=== PATIENT | male | born 1950 | race Caucasian/White ===

== ENCOUNTER → 2024-07-19 | Outpatient (CLI) | payer MEDICARE, SELFPAY ==
[2024-07-19 13:26] LABS: Basophils # (Auto) 0.1 Thou/mm3 (0.0-0.2); Basophils % (Auto) 1 % (0-2.5); Eosinophils # (Auto) 0.2 Thou/mm3 (0.0-0.5); Eosinophils % (Auto) 4 % (0-10); Hematocrit 30.9 % (41.0-53.0); Hemoglobin 9.9 g/dL (13.5-16.0); Immature Granulocytes % (Auto) 0 % (0-0); Immature Granulocytes Auto 0.02 Thou/mm3 (0.00-0.00); Lymphocytes # (Auto) 0.8 Thou/mm3 (1.0-4.8); Lymphocytes % (Auto) 14 % (10-50); Mean Corpuscular Volume 94 fL (80-100); Monocytes # (Auto) 0.7 Thou/mm3 (0.0-0.8); Monocytes % (Auto) 12 % (0-12); Neutrophils # (Auto) 4.1 Thou/mm3 (1.8-7.7); Neutrophils % (Auto) 69 % (37-80); Nucleated Red Blood Cell % 0 /100 WBC (0); Platelet Count 234 Thou/mm3 (140-440); RDW Standard Deviation 53.1 fL (35.1-43.9); White Blood Count 5.9 Thou/mm3 (3.8-10.6)
[2024-07-19 13:41] LABS: Alanine Aminotransferase 28 U/L (10-49); Albumin, Serum 3.7 gm/dL (3.4-4.8); Albumin/Globulin Ratio 1.3 (1.2-2.2); Alkaline Phosphatase 94 U/L (46-116); Anion Gap 6 (7-16); Aspartate Amino Transferase 25 U/L (0-34); BUN/Creatinine Ratio 12 Ratio (12-20); Bilirubin,Total 0.4 mg/dL (0.3-1.2); Blood Urea Nitrogen 34 mg/dL (9-23); Calcium 8.6 mg/dL (8.3-10.6); Calcium (Corrected) 8.8 mg/dL (8.5-10.1); Carbon Dioxide 25.2 mMol/L (20.0-31.0); Chloride 108 mMol/L (98-107); Creatinine (Component) 2.8 mg/dL (0.6-1.3); Globulin 2.9 gm/dL (2.3-3.5); Glucose 81 mg/dL (74-106); Magnesium 2.1 mg/dL (1.6-2.6); Osmolality,Calculated 284 (275-295); Phosphorous 3.4 mg/dL (2.4-5.1); Potassium 4.2 mMol/L (3.4-5.1); Sodium 139 mMol/L (136-145); Total Protein 6.6 gm/dL (5.7-8.2); Triglycerides 89 mg/dL (30-150); eGFR 23 See Note
== END | disposition home or self-care (01) ==
LOC: SLDO 12:40
PROVIDERS: Referring Provider Specialist; Visit Provider Specialist
DX: K90.9 Intestinal malabsorption, unspecified (principal); C20 Malignant neoplasm of rectum; C15.5 Malignant neoplasm of lower third of esophagus
CPT/HCPCS: 36415; 80053; 83735; 84100; 84478; 85025

== ENCOUNTER → 2024-08-23 | Outpatient (CLI) | payer MEDICARE, SELFPAY ==
[2024-08-23 13:21] LABS: Basophils % (Auto) 1 % (0-2.5); Eosinophils # (Auto) 0.1 Thou/mm3 (0.0-0.5); Eosinophils % (Auto) 2 % (0-10); Hematocrit 31.3 % (41.0-53.0); Hemoglobin 10.2 g/dL (13.5-16.0); Immature Granulocytes % (Auto) 0 % (0-0); Immature Granulocytes Auto 0.01 Thou/mm3 (0.00-0.00); Lymphocytes # (Auto) 0.8 Thou/mm3 (1.0-4.8); Lymphocytes % (Auto) 12 % (10-50); Mean Corpuscular HGB Conc 32.6 g/dl (31.0-37.0); Mean Corpuscular Hemoglobin 30.4 pg (25.0-35.0); Mean Corpuscular Volume 93 fL (80-100); Monocytes # (Auto) 0.6 Thou/mm3 (0.0-0.8); Monocytes % (Auto) 10 % (0-12); Neutrophils # (Auto) 4.7 Thou/mm3 (1.8-7.7); Neutrophils % (Auto) 75 % (37-80); Nucleated Red Blood Cell % 0 /100 WBC (0); Platelet Count 290 Thou/mm3 (140-440); RDW Standard Deviation 53.8 fL (35.1-43.9); Red Blood Count 3.35 Miln/mm3 (4.50-5.90); White Blood Count 6.2 Thou/mm3 (3.8-10.6)
[2024-08-23 13:40] LABS: Alanine Aminotransferase 24 U/L (10-49); Albumin, Serum 4.1 gm/dL (3.4-4.8); Albumin/Globulin Ratio 1.4 (1.2-2.2); Alkaline Phosphatase 87 U/L (46-116); Anion Gap 10 (7-16); Aspartate Amino Transferase 20 U/L (0-34); BUN/Creatinine Ratio 13 Ratio (12-20); Bilirubin,Total 0.3 mg/dL (0.3-1.2); Blood Urea Nitrogen 42 mg/dL (9-23); Carbon Dioxide 20.4 mMol/L (20.0-31.0); Chloride 108 mMol/L (98-107); Creatinine (Component) 3.2 mg/dL (0.6-1.3); Glucose 99 mg/dL (74-106); Magnesium 2.2 mg/dL (1.6-2.6); Osmolality,Calculated 286 (275-295); Phosphorous 4.3 mg/dL (2.4-5.1); Potassium 4.2 mMol/L (3.4-5.1); Sodium 138 mMol/L (136-145); Total Protein 7.1 gm/dL (5.7-8.2); Triglycerides 72 mg/dL (30-150); eGFR 20 See Note
== END | disposition home or self-care (01) ==
LOC: SLDO 12:33
PROVIDERS: Referring Provider Specialist; Visit Provider Specialist
DX: K90.9 Intestinal malabsorption, unspecified (principal); C20 Malignant neoplasm of rectum; C15.5 Malignant neoplasm of lower third of esophagus
CPT/HCPCS: 36415; 80053; 83735; 84100; 84478; 85025

== ENCOUNTER → 2024-09-22 | Outpatient (CLI) | payer MEDICARE, SELFPAY ==
[2024-09-22 13:27] LABS: Basophils # (Auto) 0.1 Thou/mm3 (0.0-0.2); Basophils % (Auto) 1 % (0-2.5); Eosinophils # (Auto) 0.2 Thou/mm3 (0.0-0.5); Eosinophils % (Auto) 3 % (0-10); Hematocrit 32.1 % (41.0-53.0); Hemoglobin 10.4 g/dL (13.5-16.0); Immature Granulocytes % (Auto) 1 % (0-0); Immature Granulocytes Auto 0.03 Thou/mm3 (0.00-0.00); Lymphocytes # (Auto) 0.9 Thou/mm3 (1.0-4.8); Lymphocytes % (Auto) 17 % (10-50); Mean Corpuscular HGB Conc 32.4 g/dl (31.0-37.0); Mean Corpuscular Hemoglobin 30.5 pg (25.0-35.0); Mean Corpuscular Volume 94 fL (80-100); Monocytes # (Auto) 0.7 Thou/mm3 (0.0-0.8); Monocytes % (Auto) 14 % (0-12); Neutrophils # (Auto) 3.3 Thou/mm3 (1.8-7.7); Neutrophils % (Auto) 65 % (37-80); Nucleated Red Blood Cell % 0 /100 WBC (0); Platelet Count 219 Thou/mm3 (140-440); RDW Standard Deviation 55.2 fL (35.1-43.9); Red Blood Count 3.41 Miln/mm3 (4.50-5.90); White Blood Count 5.1 Thou/mm3 (3.8-10.6)
[2024-09-22 13:40] LABS: Alanine Aminotransferase 30 U/L (10-49); Albumin/Globulin Ratio 1.4 (1.2-2.2); Alkaline Phosphatase 95 U/L (46-116); Anion Gap 8 (7-16); Aspartate Amino Transferase 11 U/L (0-34); BUN/Creatinine Ratio 13 Ratio (12-20); Bilirubin,Total 0.4 mg/dL (0.3-1.2); Blood Urea Nitrogen 41 mg/dL (9-23); Calcium 8.6 mg/dL (8.3-10.6); Calcium (Corrected) 8.6 mg/dL (8.5-10.1); Carbon Dioxide 23.9 mMol/L (20.0-31.0); Chloride 107 mMol/L (98-107); Creatinine (Component) 3.1 mg/dL (0.6-1.3); Globulin 2.9 gm/dL (2.3-3.5); Glucose 86 mg/dL (74-106); Magnesium 2.4 mg/dL (1.6-2.6); Osmolality,Calculated 286 (275-295); Phosphorous 3.5 mg/dL (2.4-5.1); Potassium 4.2 mMol/L (3.4-5.1); Sodium 139 mMol/L (136-145); Total Protein 6.9 gm/dL (5.7-8.2); Triglycerides 122 mg/dL (30-150); eGFR 21 See Note
== END | disposition home or self-care (01) ==
LOC: SLDO 12:14
PROVIDERS: Referring Provider Specialist; Visit Provider Specialist
DX: K90.9 Intestinal malabsorption, unspecified (principal); C20 Malignant neoplasm of rectum; C15.5 Malignant neoplasm of lower third of esophagus
CPT/HCPCS: 36415; 80053; 83735; 84100; 84478; 85025

== ENCOUNTER 2024-09-26 07:17 | Emergency (ER) | payer MEDICARE, SELFPAY ==
[2024-09-26] VITALS (9 sets, daily range): BP systolic 132–158; BP diastolic 76–92; PULSE 69–98; RESP 16–19; TEMP 36.6–37.1; O2SAT 95–100; BMI 23.0
--- NOTE | 2024-09-26 07:32 | EDNOTE_ITS ---
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 Per medics, on scene reported patient has been altered for 2 days and worse this morning. Additionally reports patient appears to be in pain and is vomiting. While in the ED, patient is only moaning and groaning and woke up to say oh hell . Otherwise not answering any other questions. No further history obtainable. Related Data Home Medications ?Medication ?Instructions ?Recorded ?Confirmed tamsulosin 0.4 mg capsule (Flomax) 0.4 mg PO HS 03/16/22 12/29/23 sodium bicarbonate 650 mg tablet 650 mg PO QID 06/10/23 12/29/23 Allergies Allergy/AdvReac Type Severity Reaction Status Date / Time No Known Allergies Allergy Verified 12/29/23 11:13 Review of Systems Review of Systems Systems Reviewed: All systems reviewed, normal except as documented Past Medical History Past Medical History NEUROLOGIC: Positive Traumatic Brain Injury (multiple concussions) RESPIRATORY: Positive Pneumonia GASTROINTESTINAL: Positive Gastrointestinal Disorders, Colorectal Cancer (ileostomy) and Gastroesophageal Reflux Disease GENITOURINARY: Positive Genitourinary Disorders, Kidney Stones, Inguinal Hernia and Benign Prostatic Hyperplasia MUSCULOSKELETAL: Positive Musculoskeletal Disorders, Arthritis and Fractures OTHER HISTORY: Positive Hospitalization (surgeries), Blood Transfusions, Chemotherapy, Radiation Therapy, Chicken Pox, Measles, Mumps, Cancer and Colorectal Cancer (ileostomy) Family History FAMILY HISTORY: Positive Family Respiratory Disorders, Family Gastrointestinal Problems, Family Cancer and Family Surgery Surgical History SURGICAL: Positive Throat Surgery (tumor removed 05/15/23 from esophagus), Abdominal Surgery, Bowel Surgery (cancer and ileostomy) and Vasectomy Social History SMOKING STATUS: Never smoker ED Exam Narrative Physical exam: GENERAL APPEARANCE: Alert, awake, opens eyes on command. VITALS: All vitals were reviewed and the pulse ox is 95% on room air which is normal according to my interpretation. HEENT: Normocephalic, atramatic, EOMI, EACs are patent. There is no bulge or retraction. Throat without erythema or exudate. Moist oromucosa. No jaundice NECK: Supple, no JVD or bruits. CARDIOVASCULAR: Heart regular without S3-S4 or murmur. No rubs or gallops. LUNGS/CHEST: Clear to auscultation bilaterally. No rales, rhonchi, or wheezing. Normal inspection. ABDOMEN: Soft, nontender, colostomy bag in the right upper quadrant near the midline, unknown whether colostomy or ileostomy, normal bowel sounds. No pulsatile masses. No rebound, rigidity, or guarding. No incarcerated hernia. EXTREMITIES: Normal inspection and palpation. No edema, clubbing, or cyanosis. Intact CSM SKIN: Warm and dry without rashes. Normal inspection. MUSCULOSKELETAL: Normal inspection. No gross deformity, full ROM all extremities NEURO: Awake, alert, opens eyes on commands, only says oh hell . Course Quality Measures none Orders Category Date Time Status Saline [Insert IV] NOW Care 09/26/24 07:[address] head/brain wo con Stat Exams 09/26/24 07:41 Completed Alcohol, Blood Medical Stat Lab 09/26/24 08:15 Completed Ammonia Stat Lab 09/26/24 08:15 Completed CBC Stat Lab 09/26/24 08:15 Completed CMP [Comprehensive Metabolic Panel] Stat Lab 09/26/24 08:15 Completed Drug Screen,Urine Stat Lab 09/26/24 07:41 Ordered Lipase Stat Lab 09/26/24 08:15 Completed Troponin I Stat Lab 09/26/24 08:15 Completed UA, C/S IF [Urinalysis, C/S if Indicated] Stat Lab 09/26/24 07:41 Ordered Sodium Chloride 0.9% 1000 ml [Ns] 1,000 ml Med 09/26/24 09:47 Active IV 250 mls/hr Vital Signs Vital signs: Vital Signs Temperature 98.0 F 09/26/24 07:18 Pulse Rate 84 09/26/24 07:18 Respiratory Rate 18 09/26/24 07:18 Blood Pressure 156/90 H 09/26/24 07:18 Pulse Oximetry (%) 99 09/26/24 07:18 Oxygen Delivery Method Nasal Cannula 09/26/24 07:18 Oxygen Flow Rate 2 09/26/24 07:18 Altered Mental Status MDM Narrative MDM Narrative:: I, Rosalba Roberts, am scribing for and in the presence of Dr. Thomas. CBC is negative. CMP remarkable for a creatinine of 2.9 and a BUN of 38 which is chronic for him. Lipase is 74 which is not bad. Ammonia negative. Troponin negative. Alcohol negative. CT brain interpreted by me: No bleed. No mass. No shift. No swelling. Normal ventricle. Normal bones. 11:10 AM, the patient alert awake is sitting up at the edge of the bed. He appears to be in pain. But he is in chronic pain. He is taking hydrocodone at home. Along with baclofen. The patient's family members are here. The patient's son in particular confirmed that the patient's been taking a lot of painkiller. The patient has been hydrated here in the emergency department. So far we have not been able to get any urine sample from the patient. We tried a cath the patient but the patient refused. 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, breast cancer, undergoing chemotherapy previous history of kidney stones and ESWL How is presenting disease/condition affected by chronic disease/condition?: exacerbated by Evaluation data The following diagnostics were reviewed and interpreted by me:: lab results and radiology exam(s) Lab and/or radiology exams considered but not ordered:: None Interpretation Summary: Ordering Physician: Singh Thomas MD Date of Service: 09/26/24 Procedure(s): CT head/brain [facility] Accession Number(s): [id number] cc: Flaquito Mclaughlin MD; Singh Thomas MD; Gonzalo Dias MD~ Examination: CT brain head without contrast. 2-D sagittal coronal reconstructions Date and time of exam:September 26, 2024 0800 hours INDICATIONS: Onset altered mental status today, confusion CTDI: vol (mGy):52 DLP: (mGycm):1038 Technique: Multiple CT axial sections of the brain have been obtained, 5 mm slice thickness. Contrast has not been administered. 2-D sagittal, coronal reconstructions have been obtained Low dose protocols were performed. One or more of the following dose reduction techniques were used; automated exposure control, adjustment of the mA and/or KV according to patient size, use of iterative reconstruction technique. Findings: No significant ventricular enlargement. Intra-axial or extra-axial hemorrhage density is not seen. No mass effect or midline shift Basal cisterns are not remarkable. Fourth ventricle is midline. Cranial vault intact. Impression: Negative for acute hemorrhage, mass effect or midline shift Advise clinical correlation and follow-up accordingly Dictated By: Flaquito Mclaughlin MD Signed By: <Electronically signed by Flaquito Mclaughlin MD in [place]> 09/26/24 0845 Medications / Prescriptions Medications or Prescriptions considered but not ordered:: None Medication administrations:: Medication Administration History Sodium Chloride (Ns) 1,000 mls @ 250 mls/hr IV .Q4H ONE Stop: 09/26/24 13:46 Last Admin: 09/26/24 09:59 Dose: 250 mls/hr Documented By: DB See above Consultations Consultation(s) initiated? (list below): No Diagnosis Differential diagnosis altered mental status: altered mental status, dementia, hypoglycemia, hyponatremia, subarachnoid hemorrhage and sepsis Most likely diagnosis given after review of the tests above:: AMS Narcotic dependance Chronic kidney insufficiency Admission Indicated Admission indicated?: not indicated Admission Request Was there a request for admission?: No Disposition Plan Disposition Plan: Discharge Discharge Attestation Discharge Attestation: The patient and all family members were given an opportunity to ask questions and understood the discharge instructions. Discharge instructions specifically effects, indications for sooner follow up or return to the emergency department, and the expected course of current diagnosis. Patient condition: Stable Discharge Plan Plan Patient Disposition: HOME (Self Care) Disposition Comment: Stable and improved Prescriptions/Referrals Prescriptions/Med Rec: No Action tamsulosin [Flomax] 0.4 mg capsule 0.4 mg PO HS Rx Instructions: once at night. sodium bicarbonate 650 mg Tablet 650 mg PO QID Referrals: Gonzalo Dias MD [Primary Care Provider] - In 1 week Problem List Clinical Impression: Altered mental status, Narcotic dependence, Chronic kidney insufficiency Patient/Caregiver Discharge Instructions Education Materials: ED ALOC, ED Chronic Kidney Disease (CKD) Additional Instructions: Please follow-up with his medical doctor in the next few days. Return the nearest emergency department if condition worsens or if new symptoms develop. He appears to be very sleepy most likely due to narcotic use. Please cut back on the hydrocodone. Print Language: Lithuanian Stand Alone Forms: Rin Award Info., Patient Portal Info Letter
--- NOTE | 2024-09-26 07:41 | XR_ITS ---
Examination: CT brain head without contrast. 2-D sagittal coronal reconstructions Date and time of exam:September 26, 2024 0800 hours INDICATIONS: Onset altered mental status today, confusion CTDI: vol (mGy):52 DLP: (mGycm):1038 Technique: Multiple CT axial sections of the brain have been obtained, 5 mm slice thickness. Contrast has not been administered. 2-D sagittal, coronal reconstructions have been obtained Low dose protocols were performed. One or more of the following dose reduction techniques were used; automated exposure control, adjustment of the mA and/or KV according to patient size, use of iterative reconstruction technique. Findings: No significant ventricular enlargement. Intra-axial or extra-axial hemorrhage density is not seen. No mass effect or midline shift Basal cisterns are not remarkable. Fourth ventricle is midline. Cranial vault intact. Impression: Negative for acute hemorrhage, mass effect or midline shift Advise clinical correlation and follow-up accordingly
[2024-09-26 08:23] LABS: Basophils % (Auto) 0 % (0-2.5); Eosinophils % (Auto) 0 % (0-10); Hematocrit 40.3 % (41.0-53.0); Hemoglobin 12.9 g/dL (13.5-16.0); Immature Granulocytes % (Auto) 0 % (0-0); Immature Granulocytes Auto 0.02 Thou/mm3 (0.00-0.00); Lymphocytes # (Auto) 0.4 Thou/mm3 (1.0-4.8); Lymphocytes % (Auto) 5 % (10-50); Mean Corpuscular Hemoglobin 30.3 pg (25.0-35.0); Mean Corpuscular Volume 95 fL (80-100); Monocytes # (Auto) 0.3 Thou/mm3 (0.0-0.8); Monocytes % (Auto) 5 % (0-12); Neutrophils # (Auto) 6.5 Thou/mm3 (1.8-7.7); Neutrophils % (Auto) 90 % (37-80); Nucleated Red Blood Cell % 0 /100 WBC (0); Platelet Count 264 Thou/mm3 (140-440); RDW Standard Deviation 56.4 fL (35.1-43.9); Red Blood Count 4.26 Miln/mm3 (4.50-5.90); White Blood Count 7.2 Thou/mm3 (3.8-10.6)
[2024-09-26 09:16] LABS: Alanine Aminotransferase 21 U/L (10-49); Albumin, Serum 4.5 gm/dL (3.4-4.8); Albumin/Globulin Ratio 1.2 (1.2-2.2); Alcohol, Blood Medical < 3.0 mg/dL (0-10.0); Alkaline Phosphatase 97 U/L (46-116); Ammonia < 10 uMol/L (11-32); Anion Gap 10 (7-16); Aspartate Amino Transferase 22 U/L (0-34); BUN/Creatinine Ratio 13 Ratio (12-20); Bilirubin,Total 0.5 mg/dL (0.3-1.2); Blood Urea Nitrogen 38 mg/dL (9-23); Calcium 9.5 mg/dL (8.3-10.6); Calcium (Corrected) 9.5 mg/dL (8.5-10.1); Carbon Dioxide 21.8 mMol/L (20.0-31.0); Chloride 111 mMol/L (98-107); Creatinine (Component) 2.9 mg/dL (0.6-1.3); Estimated Creatinine Clearance 25.1 mL/min (>60); Globulin 3.7 gm/dL (2.3-3.5); Glucose 122 mg/dL (74-106); Lipase 74 U/L (12-53); Osmolality,Calculated 294 (275-295); Potassium 4.6 mMol/L (3.4-5.1); Sodium 143 mMol/L (136-145); Total Protein 8.2 gm/dL (5.7-8.2); Troponin I < 0.020 ng/mL (0.0-0.045); eGFR 22 See Note
[2024-09-26] MEDS: SODIUM CHLORIDE 0.9% 1000 ML 1,000 ML 250 ML IV ×2 (09:59→16:48)
--- NOTE | 2024-09-26 14:00 | XR_ITS ---
Examination: CT abdomen and pelvis without contrast. Coronal 3-D reconstructions. Sagittal 2-D reconstructions. Date and time of exam:September 26, 2024 1735 hrs. Indications: Altered mental status, abdominal pain several days CTDI: vol (mGy): 9.25 DLP: (mGycm): 575 Technique: Axial images of the abdomen have been obtained, 3 mm slice thickness Intravenous contrast material has not been administered. Low dose protocols were performed. One or more of the following dose reduction techniques were used; automated exposure control, adjustment of the mA and/or KV according to patient size, use of iterative reconstruction technique. Findings: Retrocardiac gastric hernia No focal liver or splenic lesion Contracted gallbladder No pancreatic mass Negative for gallstones Left ureteral stent satisfactory position with no significant hydronephrosis Aortic calcification no aneurysmal dilatation Normal appendix Right ileostomy Urinary bladder intact No prostatomegaly Diffuse moderate to advanced lumbar degenerative disc disease Impression: Left ureteral stent satisfactory position with no significant hydronephrosis
[2024-09-26 14:25] LABS: Collection Type, Urine Catheter; Squamous Epithelial Cell,Urine 0 /hpf (0-5)
[2024-09-26 14:41] LABS: Amphetamine/Methamp Scrn,U Negative (Negative); Barbiturate Screen,Urine Negative (Negative); Benzodiazepines Screen,Urine Negative (Negative); Benzoylecgonine Screen, Ur Negative (Negative); Fentanyl Screen,Urine Negative (Negative); Opiate Screen,Urine Negative (Negative); THC Screen,Urine Negative (Negative)
[2024-09-26 14:42] LABS: Bacteria,Urine Rare; Bilirubin,Urine Negative (Negative); Blood,Urine 2+ (Negative); Color,Urine Yellow (Lt Yel-Yel); Glucose, Urine Negative (Negative); Hyaline Casts,Urine < 1 /hpf (0-1); Ketones,Urine Negative (Negative); Leukocyte Esterase,Urine Positive (Negative); Nitrite,Urine Positive (Negative); Protein,Urine 1+ (Neg - Trace); RBC,Urine 53 /hpf (0-3); Specific Gravity,Urine 1.019 (1.001-1.035); Urobilinogen,Urine Negative mg/dL (0.0-1.0); WBC,Urine 301 /hpf (0-5)
[2024-09-26 14:54] LABS: Clarity,Urine Hazy (Clear/Hazy); Culture Indicated,Urine Yes
--- NOTE | 2024-09-26 18:53 | PD.EDADDENDU ---
Emergency Room Addendum Addendum Narrative: 1800: Care assumed from Dr. Thomas, the previous shift emergency physician. Past medical, surgical, social and family history reviewed. Vitals and home medications reviewed. Results and treatment plan discussed. I will assume the care of the patient at this time and will follow the patient, pending CT abdomen pelvis. Please refer to the emergency department record for history and examination from initial visit. 215: Discussed results with the patient at bedside. Patient is complaining of abdominal pain, but states he does not want any pain medications and is requesting something to help him sleep. He states he does take his oxycodone at home, although he does not like to take it. He states he has an appointment for dialysis tomorrow. Patient is agreeable to being discharged home. Return precautions given. RADIOLOGY RESULTS: [facility] Report Signed Patient: ELDA BRAY. Record#: [id number] Birthdate: 1950 Age/Sex: 74 / M Location: [facility], [place] Attending Dr: Ordering Physician: Singh Thomas MD Date of Service: 09/26/24 Procedure(s): CT abdomen pelvis wo con Accession Number(s): [id number] cc: Flaquito Mclaughlin MD; Singh Thomas MD; Gonzalo Dias MD~ Examination: CT abdomen and pelvis without contrast. Coronal 3-D reconstructions. Sagittal 2-D reconstructions. Date and time of exam:September 26, 2024 1735 hrs. Indications: Altered mental status, abdominal pain several days CTDI: vol (mGy): 9.25 DLP: (mGycm): 575 Technique: Axial images of the abdomen have been obtained, 3 mm slice thickness Intravenous contrast material has not been administered. Low dose protocols were performed. One or more of the following dose reduction techniques were used; automated exposure control, adjustment of the mA and/or KV according to patient size, use of iterative reconstruction technique. Findings: Retrocardiac gastric hernia No focal liver or splenic lesion Contracted gallbladder No pancreatic mass Negative for gallstones Left ureteral stent satisfactory position with no significant hydronephrosis Aortic calcification no aneurysmal dilatation Normal appendix Right ileostomy Urinary bladder intact No prostatomegaly Diffuse moderate to advanced lumbar degenerative disc disease Impression: Left ureteral stent satisfactory position with no significant hydronephrosis Dictated By: Flaquito Mclaughlin MD Signed By: <Electronically signed by Flaquito Mclaughlin MD in OV> 09/26/242121
[2024-09-26] MEDS: DIAZEPAM 5 MG TABLET PO (22:02)
== END 2024-09-26 22:03 | disposition home or self-care (01) ==
PROVIDERS: Emergency Medicine; Emergency Provider Emergency Medicine; PCP Family Medicine
DX: R41.82 Altered mental status, unspecified (principal); F11.20 Opioid dependence, uncomplicated; N18.9 Chronic kidney disease, unspecified; C78.7 Secondary malignant neoplasm of liver and intrahepatic bile duct; Z96.0 Presence of urogenital implants; R10.9 Unspecified abdominal pain
CPT/HCPCS: 36415; 70450; 74176; 80053; 80307; 80320; 81001; 82140; 83690; 84484; 85025; 87077; 87086; 87186; 96360; 96361; 99284; J7030; A9270; G0480

== ENCOUNTER → 2024-10-25 | Outpatient (CLI) | payer MEDICARE, SELFPAY ==
[2024-10-25 13:31] LABS: Basophils % (Auto) 1 % (0-2.5); Eosinophils # (Auto) 0.2 Thou/mm3 (0.0-0.5); Eosinophils % (Auto) 4 % (0-10); Hemoglobin 11.2 g/dL (13.5-16.0); Immature Granulocytes % (Auto) 1 % (0-0); Immature Granulocytes Auto 0.03 Thou/mm3 (0.00-0.00); Lymphocytes # (Auto) 0.7 Thou/mm3 (1.0-4.8); Lymphocytes % (Auto) 14 % (10-50); Mean Corpuscular Hemoglobin 31.2 pg (25.0-35.0); Mean Corpuscular Volume 98 fL (80-100); Monocytes # (Auto) 0.5 Thou/mm3 (0.0-0.8); Monocytes % (Auto) 10 % (0-12); Neutrophils # (Auto) 3.7 Thou/mm3 (1.8-7.7); Neutrophils % (Auto) 70 % (37-80); Nucleated Red Blood Cell % 0 /100 WBC (0); Platelet Count 186 Thou/mm3 (140-440); RDW Standard Deviation 57.9 fL (35.1-43.9); Red Blood Count 3.59 Miln/mm3 (4.50-5.90); White Blood Count 5.2 Thou/mm3 (3.8-10.6)
[2024-10-25 13:43] LABS: Alanine Aminotransferase 31 U/L (10-49); Albumin, Serum 3.5 gm/dL (3.4-4.8); Albumin/Globulin Ratio 1.4 (1.2-2.2); Alkaline Phosphatase 94 U/L (46-116); Anion Gap 6 (7-16); Aspartate Amino Transferase 23 U/L (0-34); BUN/Creatinine Ratio 13 Ratio (12-20); Bilirubin,Total 0.3 mg/dL (0.3-1.2); Blood Urea Nitrogen 34 mg/dL (9-23); Calcium 8.3 mg/dL (8.3-10.6); Calcium (Corrected) 8.7 mg/dL (8.5-10.1); Carbon Dioxide 21.2 mMol/L (20.0-31.0); Chloride 114 mMol/L (98-107); Creatinine (Component) 2.7 mg/dL (0.6-1.3); Globulin 2.5 gm/dL (2.3-3.5); Glucose 143 mg/dL (74-106); Osmolality,Calculated 290 (275-295); Phosphorous 2.8 mg/dL (2.4-5.1); Potassium 4.2 mMol/L (3.4-5.1); Sodium 141 mMol/L (136-145); Triglycerides 169 mg/dL (30-150); eGFR 24 See Note
== END | disposition home or self-care (01) ==
LOC: SLDO 12:25
PROVIDERS: PCP Specialist; Referring Provider Specialist; Visit Provider Specialist
DX: K90.9 Intestinal malabsorption, unspecified (principal); C20 Malignant neoplasm of rectum; C15.5 Malignant neoplasm of lower third of esophagus
CPT/HCPCS: 36415; 80053; 83735; 84100; 84478; 85025

== ENCOUNTER → 2024-11-22 | Outpatient (CLI) | payer MEDICARE, SELFPAY ==
[2024-11-22 12:38] LABS: Basophils % (Auto) 1 % (0-2.5); Eosinophils # (Auto) 0.1 Thou/mm3 (0.0-0.5); Eosinophils % (Auto) 2 % (0-10); Hematocrit 35.6 % (41.0-53.0); Hemoglobin 11.4 g/dL (13.5-16.0); Immature Granulocytes % (Auto) 0 % (0-0); Immature Granulocytes Auto 0.02 Thou/mm3 (0.00-0.00); Lymphocytes # (Auto) 0.6 Thou/mm3 (1.0-4.8); Lymphocytes % (Auto) 13 % (10-50); Mean Corpuscular Hemoglobin 31.9 pg (25.0-35.0); Mean Corpuscular Volume 100 fL (80-100); Monocytes # (Auto) 0.4 Thou/mm3 (0.0-0.8); Monocytes % (Auto) 9 % (0-12); Neutrophils # (Auto) 3.5 Thou/mm3 (1.8-7.7); Neutrophils % (Auto) 75 % (37-80); Nucleated Red Blood Cell % 0 /100 WBC (0); Platelet Count 192 Thou/mm3 (140-440); RDW Standard Deviation 55.4 fL (35.1-43.9); Red Blood Count 3.57 Miln/mm3 (4.50-5.90); White Blood Count 4.6 Thou/mm3 (3.8-10.6)
[2024-11-22 12:58] LABS: Alanine Aminotransferase 22 U/L (10-49); Albumin, Serum 3.8 gm/dL (3.4-4.8); Albumin/Globulin Ratio 1.5 (1.2-2.2); Alkaline Phosphatase 82 U/L (46-116); Anion Gap 8 (7-16); Aspartate Amino Transferase 18 U/L (0-34); BUN/Creatinine Ratio 14 Ratio (12-20); Bilirubin,Total 0.5 mg/dL (0.3-1.2); Blood Urea Nitrogen 39 mg/dL (9-23); Calcium 8.8 mg/dL (8.3-10.6); Carbon Dioxide 18.2 mMol/L (20.0-31.0); Chloride 115 mMol/L (98-107); Creatinine (Component) 2.8 mg/dL (0.6-1.3); Globulin 2.5 gm/dL (2.3-3.5); Glucose 77 mg/dL (74-106); Magnesium 2.1 mg/dL (1.6-2.6); Osmolality,Calculated 289 (275-295); Phosphorous 3.7 mg/dL (2.4-5.1); Potassium 4.5 mMol/L (3.4-5.1); Sodium 141 mMol/L (136-145); Total Protein 6.3 gm/dL (5.7-8.2); Triglycerides 101 mg/dL (30-150); eGFR 23 See Note
== END | disposition home or self-care (01) ==
LOC: SLDO 11:12
PROVIDERS: Referring Provider Specialist; Visit Provider Specialist
DX: K90.9 Intestinal malabsorption, unspecified (principal); C20 Malignant neoplasm of rectum; C15.5 Malignant neoplasm of lower third of esophagus
CPT/HCPCS: 36415; 80053; 83735; 84100; 84478; 85025

== ENCOUNTER → 2024-12-20 | Outpatient (CLI) | payer MEDICARE, SELFPAY ==
[2024-12-20 11:33] LABS: Basophils % (Auto) 1 % (0-2.5); Eosinophils # (Auto) 0.2 Thou/mm3 (0.0-0.5); Eosinophils % (Auto) 3 % (0-10); Hematocrit 30.3 % (41.0-53.0); Hemoglobin 9.9 g/dL (13.5-16.0); Immature Granulocytes % (Auto) 0 % (0-0); Immature Granulocytes Auto 0.02 Thou/mm3 (0.00-0.00); Lymphocytes # (Auto) 0.6 Thou/mm3 (1.0-4.8); Lymphocytes % (Auto) 11 % (10-50); Mean Corpuscular HGB Conc 32.7 g/dl (31.0-37.0); Mean Corpuscular Hemoglobin 32.4 pg (25.0-35.0); Mean Corpuscular Volume 99 fL (80-100); Monocytes # (Auto) 0.6 Thou/mm3 (0.0-0.8); Monocytes % (Auto) 11 % (0-12); Neutrophils # (Auto) 3.9 Thou/mm3 (1.8-7.7); Neutrophils % (Auto) 74 % (37-80); Nucleated Red Blood Cell % 0 /100 WBC (0); Platelet Count 144 Thou/mm3 (140-440); RDW Standard Deviation 50.4 fL (35.1-43.9); Red Blood Count 3.06 Miln/mm3 (4.50-5.90); White Blood Count 5.2 Thou/mm3 (3.8-10.6)
[2024-12-20 11:57] LABS: Alanine Aminotransferase 21 U/L (10-49); Albumin, Serum 3.4 gm/dL (3.4-4.8); Albumin/Globulin Ratio 1.3 (1.2-2.2); Alkaline Phosphatase 86 U/L (46-116); Anion Gap 7 (7-16); Aspartate Amino Transferase 20 U/L (0-34); BUN/Creatinine Ratio 13 Ratio (12-20); Bilirubin,Total 0.3 mg/dL (0.3-1.2); Blood Urea Nitrogen 34 mg/dL (9-23); Calcium 8.3 mg/dL (8.3-10.6); Calcium (Corrected) 8.8 mg/dL (8.5-10.1); Carbon Dioxide 22.9 mMol/L (20.0-31.0); Chloride 107 mMol/L (98-107); Creatinine (Component) 2.7 mg/dL (0.6-1.3); Globulin 2.6 gm/dL (2.3-3.5); Glucose 87 mg/dL (74-106); Osmolality,Calculated 280 (275-295); Phosphorous 3.6 mg/dL (2.4-5.1); Potassium 4.4 mMol/L (3.4-5.1); Sodium 137 mMol/L (136-145); Triglycerides 92 mg/dL (30-150); eGFR 24 See Note
== END | disposition home or self-care (01) ==
LOC: SLDO 10:45
DX: K90.9 Intestinal malabsorption, unspecified (principal); C20 Malignant neoplasm of rectum; C15.5 Malignant neoplasm of lower third of esophagus
CPT/HCPCS: 36415; 80053; 83735; 84100; 84478; 85025

== ENCOUNTER → 2025-01-24 | Outpatient (CLI) | payer MEDICARE, SELFPAY ==
[2025-01-24 11:27] LABS: Basophils % (Auto) 0 % (0-2.5); Eosinophils # (Auto) 0.1 Thou/mm3 (0.0-0.5); Eosinophils % (Auto) 2 % (0-10); Hematocrit 33.2 % (41.0-53.0); Hemoglobin 11.5 g/dL (13.5-16.0); Immature Granulocytes % (Auto) 1 % (0-0); Immature Granulocytes Auto 0.04 Thou/mm3 (0.00-0.00); Lymphocytes # (Auto) 0.6 Thou/mm3 (1.0-4.8); Lymphocytes % (Auto) 9 % (10-50); Mean Corpuscular HGB Conc 34.6 g/dl (31.0-37.0); Mean Corpuscular Hemoglobin 31.9 pg (25.0-35.0); Mean Corpuscular Volume 92 fL (80-100); Monocytes # (Auto) 1.1 Thou/mm3 (0.0-0.8); Monocytes % (Auto) 15 % (0-12); Neutrophils % (Auto) 73 % (37-80); Nucleated Red Blood Cell % 0 /100 WBC (0); Platelet Count 251 Thou/mm3 (140-440); RDW Standard Deviation 43.7 fL (35.1-43.9); White Blood Count 6.8 Thou/mm3 (3.8-10.6)
[2025-01-24 11:49] LABS: Alanine Aminotransferase 27 U/L (10-49); Albumin, Serum 3.6 gm/dL (3.4-4.8); Albumin/Globulin Ratio 1.3 (1.2-2.2); Alkaline Phosphatase 104 U/L (46-116); Anion Gap 10 (7-16); Aspartate Amino Transferase 19 U/L (0-34); BUN/Creatinine Ratio 14 Ratio (12-20); Bilirubin,Total 0.3 mg/dL (0.3-1.2); Blood Urea Nitrogen 41 mg/dL (9-23); Calcium 8.1 mg/dL (8.3-10.6); Calcium (Corrected) 8.4 mg/dL (8.5-10.1); Carbon Dioxide 23.8 mMol/L (20.0-31.0); Chloride 104 mMol/L (98-107); Globulin 2.7 gm/dL (2.3-3.5); Glucose 78 mg/dL (74-106); Magnesium 2.2 mg/dL (1.6-2.6); Osmolality,Calculated 284 (275-295); Phosphorous 3.3 mg/dL (2.4-5.1); Potassium 4.1 mMol/L (3.4-5.1); Sodium 138 mMol/L (136-145); Total Protein 6.3 gm/dL (5.7-8.2); Triglycerides 104 mg/dL (30-150); eGFR 21 See Note
== END | disposition home or self-care (01) ==
LOC: SLDO 10:36
PROVIDERS: Referring Provider Specialist; Visit Provider Specialist
DX: K90.9 Intestinal malabsorption, unspecified (principal); C20 Malignant neoplasm of rectum; C15.5 Malignant neoplasm of lower third of esophagus
CPT/HCPCS: 36415; 80053; 83735; 84100; 84478; 85025

== ENCOUNTER → 2025-02-21 | Outpatient (CLI) | payer MEDICARE, SELFPAY ==
[2025-02-21 12:37] LABS: Basophils % (Auto) 1 % (0-2.5); Eosinophils # (Auto) 0.1 Thou/mm3 (0.0-0.5); Eosinophils % (Auto) 2 % (0-10); Hematocrit 32.1 % (41.0-53.0); Hemoglobin 11.2 g/dL (13.5-16.0); Immature Granulocytes % (Auto) 1 % (0-0); Immature Granulocytes Auto 0.03 Thou/mm3 (0.00-0.00); Lymphocytes # (Auto) 0.7 Thou/mm3 (1.0-4.8); Lymphocytes % (Auto) 13 % (10-50); Mean Corpuscular HGB Conc 34.9 g/dl (31.0-37.0); Mean Corpuscular Hemoglobin 31.8 pg (25.0-35.0); Mean Corpuscular Volume 91 fL (80-100); Monocytes # (Auto) 0.7 Thou/mm3 (0.0-0.8); Monocytes % (Auto) 12 % (0-12); Neutrophils # (Auto) 3.9 Thou/mm3 (1.8-7.7); Neutrophils % (Auto) 72 % (37-80); Nucleated Red Blood Cell % 0 /100 WBC (0); Platelet Count 187 Thou/mm3 (140-440); RDW Standard Deviation 43.1 fL (35.1-43.9); Red Blood Count 3.52 Miln/mm3 (4.50-5.90); White Blood Count 5.4 Thou/mm3 (3.8-10.6)
[2025-02-21 12:56] LABS: Alanine Aminotransferase 23 U/L (10-49); Albumin, Serum 3.5 gm/dL (3.4-4.8); Albumin/Globulin Ratio 1.5 (1.2-2.2); Alkaline Phosphatase 97 U/L (46-116); Anion Gap 11 (7-16); BUN/Creatinine Ratio 15 Ratio (12-20); Bilirubin,Total 0.4 mg/dL (0.3-1.2); Blood Urea Nitrogen 38 mg/dL (9-23); Calcium 8.4 mg/dL (8.3-10.6); Calcium (Corrected) 8.8 mg/dL (8.5-10.1); Carbon Dioxide 27.7 mMol/L (20.0-31.0); Chloride 103 mMol/L (98-107); Creatinine (Component) 2.5 mg/dL (0.6-1.3); Globulin 2.3 gm/dL (2.3-3.5); Glucose 90 mg/dL (74-106); Magnesium 2.2 mg/dL (1.6-2.6); Osmolality,Calculated 292 (275-295); Phosphorous 3.2 mg/dL (2.4-5.1); Potassium 3.8 mMol/L (3.4-5.1); Sodium 142 mMol/L (136-145); Thyroid Stimulating Hormone 1.78 uIU/mL (0.55-4.78); Total Protein 5.8 gm/dL (5.7-8.2); eGFR 27 See Note
== END | disposition home or self-care (01) ==
LOC: SLDO 11:32
PROVIDERS: PCP Specialist; Referring Provider Specialist; Visit Provider Specialist
DX: K90.9 Intestinal malabsorption, unspecified (principal); C20 Malignant neoplasm of rectum; C15.5 Malignant neoplasm of lower third of esophagus
CPT/HCPCS: 36415; 80053; 83735; 84100; 84443; 85025

== ENCOUNTER → 2025-03-21 | Outpatient (CLI) | payer MEDICARE, SELFPAY ==
[2025-03-21 13:35] LABS: Basophils # (Auto) 0.0 Thou/mm3 (0.0-0.2); Basophils % (Auto) 1 % (0-2.5); Eosinophils # (Auto) 0.1 Thou/mm3 (0.0-0.5); Eosinophils % (Auto) 2 % (0-10); Hematocrit 37.0 % (41.0-53.0); Hemoglobin 11.9 g/dL (13.5-16.0); Immature Granulocytes Auto 0.03 Thou/mm3 (0.00-0.00); Lymphocytes # (Auto) 0.8 Thou/mm3 (1.0-4.8); Lymphocytes % (Auto) 13 % (10-50); Mean Corpuscular HGB Conc 32.2 g/dl (31.0-37.0); Mean Corpuscular Hemoglobin 31.5 pg (25.0-35.0); Mean Corpuscular Volume 98 fL (80-100); Monocytes # (Auto) 0.6 Thou/mm3 (0.0-0.8); Monocytes % (Auto) 9 % (0-12); Neutrophils # (Auto) 4.5 Thou/mm3 (1.8-7.7); Neutrophils % (Auto) 74 % (37-80); Nucleated Red Blood Cell # 0.00 Thou/mm3 (0.00-0.00); Nucleated Red Blood Cell % 0 /100 WBC (0); Platelet Count 217 Thou/mm3 (140-440); RDW Standard Deviation 48.2 fL (35.1-43.9); Red Blood Count 3.78 Miln/mm3 (4.50-5.90); White Blood Count 6.1 Thou/mm3 (3.8-10.6)
[2025-03-21 13:47] LABS: Alanine Aminotransferase 36 U/L (10-49); Albumin, Serum 3.7 gm/dL (3.4-4.8); Albumin/Globulin Ratio 1.4 (1.2-2.2); Alkaline Phosphatase 103 U/L (46-116); Anion Gap 10 (7-16); Aspartate Amino Transferase 22 U/L (0-34); BUN/Creatinine Ratio 13 Ratio (12-20); Bilirubin,Total 0.6 mg/dL (0.3-1.2); Blood Urea Nitrogen 40 mg/dL (9-23); Calcium 8.6 mg/dL (8.3-10.6); Calcium (Corrected) 8.8 mg/dL (8.5-10.1); Carbon Dioxide 23.0 mMol/L (20.0-31.0); Chloride 109 mMol/L (98-107); Creatinine (Component) 3.1 mg/dL (0.6-1.3); Globulin 2.7 gm/dL (2.3-3.5); Glucose 100 mg/dL (74-106); Magnesium 2.1 mg/dL (1.6-2.6); Osmolality,Calculated 292 (275-295); Phosphorous 3.1 mg/dL (2.4-5.1); Potassium 4.2 mMol/L (3.4-5.1); Sodium 142 mMol/L (136-145); Total Protein 6.4 gm/dL (5.7-8.2); Triglycerides 104 mg/dL (30-150); eGFR 21 See Note
== END | disposition home or self-care (01) ==
LOC: SLDO 12:59
PROVIDERS: Referring Provider Internal Medicine; Visit Provider Internal Medicine
DX: K90.9 Intestinal malabsorption, unspecified (principal); C20 Malignant neoplasm of rectum; C15.5 Malignant neoplasm of lower third of esophagus
CPT/HCPCS: 36415; 80053; 83735; 84100; 84478; 85025

== ENCOUNTER → 2025-04-18 | Outpatient (CLI) | payer MEDICARE, SELFPAY ==
[2025-04-18 14:34] LABS: Basophils # (Auto) 0.0 Thou/mm3 (0.0-0.2); Basophils % (Auto) 0 % (0-2.5); Eosinophils # (Auto) 0.1 Thou/mm3 (0.0-0.5); Eosinophils % (Auto) 1 % (0-10); Hematocrit 35.1 % (41.0-53.0); Hemoglobin 11.4 g/dL (13.5-16.0); Immature Granulocytes Auto 0.07 Thou/mm3 (0.00-0.00); Lymphocytes # (Auto) 0.7 Thou/mm3 (1.0-4.8); Lymphocytes % (Auto) 8 % (10-50); Mean Corpuscular HGB Conc 32.5 g/dl (31.0-37.0); Mean Corpuscular Hemoglobin 31.1 pg (25.0-35.0); Mean Corpuscular Volume 96 fL (80-100); Monocytes # (Auto) 0.9 Thou/mm3 (0.0-0.8); Monocytes % (Auto) 10 % (0-12); Neutrophils # (Auto) 7.4 Thou/mm3 (1.8-7.7); Neutrophils % (Auto) 80 % (37-80); Nucleated Red Blood Cell # 0.00 Thou/mm3 (0.00-0.00); Nucleated Red Blood Cell % 0 /100 WBC (0); Platelet Count 344 Thou/mm3 (140-440); RDW Standard Deviation 47.6 fL (35.1-43.9); Red Blood Count 3.67 Miln/mm3 (4.50-5.90); White Blood Count 9.2 Thou/mm3 (3.8-10.6)
[2025-04-18 14:52] LABS: Alanine Aminotransferase 33 U/L (10-49); Albumin, Serum 3.5 gm/dL (3.4-4.8); Albumin/Globulin Ratio 1.3 (1.2-2.2); Alkaline Phosphatase 133 U/L (46-116); Anion Gap 12 (7-16); Aspartate Amino Transferase 18 U/L (0-34); BUN/Creatinine Ratio 15 Ratio (12-20); Bilirubin,Total 0.4 mg/dL (0.3-1.2); Blood Urea Nitrogen 41 mg/dL (9-23); Calcium 8.5 mg/dL (8.3-10.6); Calcium (Corrected) 8.9 mg/dL (8.5-10.1); Carbon Dioxide 23.1 mMol/L (20.0-31.0); Chloride 104 mMol/L (98-107); Creatinine (Component) 2.7 mg/dL (0.6-1.3); Globulin 2.6 gm/dL (2.3-3.5); Glucose 92 mg/dL (74-106); Magnesium 1.8 mg/dL (1.6-2.6); Osmolality,Calculated 287 (275-295); Phosphorous 3.7 mg/dL (2.4-5.1); Potassium 4.6 mMol/L (3.4-5.1); Sodium 139 mMol/L (136-145); Total Protein 6.1 gm/dL (5.7-8.2); Triglycerides 56 mg/dL (30-150); eGFR 24 See Note
== END | disposition home or self-care (01) ==
LOC: SLDO 13:49
PROVIDERS: Referring Provider Specialist; Visit Provider Specialist
DX: K90.9 Intestinal malabsorption, unspecified (principal); C20 Malignant neoplasm of rectum; C15.5 Malignant neoplasm of lower third of esophagus
CPT/HCPCS: 36415; 80053; 83735; 84100; 84478; 85025

== ENCOUNTER 2025-08-10 04:43 | Emergency (ER) | payer MEDICARE, SELFPAY ==
[2025-08-10 04:45] VITALS: PULSE 90; RESP 14; O2SAT 99; BMI 24.4
[2025-08-10 04:55] VITALS: BP 128/69; PULSE 95; RESP 14; TEMP 37; O2SAT 99
--- NOTE | 2025-08-10 04:57 | PD.EDBACK ---
ED Back Injury Pain RME/HPI General Chief Complaint: Back Pain/Injury Stated Complaint: back pain Time Seen by Provider: 08/10/25 05:00 Arrival date/time: 08/10/25 04:43 RME / HPI RME / HPI Narrative: See [facility] for Dr. Cordova's HPI Documentation. Related Data Home Medications ?Medication ?Instructions ?Recorded ?Confirmed tamsulosin 0.4 mg capsule (Flomax) 0.4 mg PO HS 03/16/22 12/29/23 sodium bicarbonate 650 mg tablet 650 mg PO QID 06/10/23 12/29/23 Allergies Allergy/AdvReac Type Severity Reaction Status Date / Time No Known Allergies Allergy Verified 12/29/23 11:13 Review of Systems Review of Systems Systems Reviewed: All systems reviewed, normal except as documented Past Medical History Past Medical History NEUROLOGIC: Positive Traumatic Brain Injury RESPIRATORY: Positive Pneumonia GASTROINTESTINAL: Positive Gastrointestinal Disorders, Colorectal Cancer and Gastroesophageal Reflux Disease GENITOURINARY: Positive Genitourinary Disorders, Kidney Stones, Inguinal Hernia and Benign Prostatic Hyperplasia MUSCULOSKELETAL: Positive Musculoskeletal Disorders, Arthritis and Fractures OTHER HISTORY: Positive Hospitalization, Blood Transfusions, Chemotherapy, Radiation Therapy, Chicken Pox, Measles, Mumps, Cancer and Colorectal Cancer Family History FAMILY HISTORY: Positive Family Respiratory Disorders, Family Gastrointestinal Problems, Family Cancer and Family Surgery Surgical History SURGICAL: Positive Throat Surgery, Abdominal Surgery, Bowel Surgery and Vasectomy ED Exam Narrative Physical exam: See [facility] for Dr. Cordova's Physical Exam Documentation. Course Quality Measures none Orders Category Date Time Status Saline [Insert IV] NOW Care 08/10/25 05:01 Active Straight [In and Out Catheter] X1 Care 08/10/25 05:[address] abdomen pelvis wo con Stat Exams 08/10/25 05:02 Ordered US gall bladder Stat Exams 08/10/25 05:02 Ordered Amylase Stat Lab 08/10/25 05:02 Ordered Bilirubin,Direct Stat Lab 08/10/25 05:02 Ordered CBC Stat Lab 08/10/25 05:02 Ordered CMP [Comprehensive Metabolic Panel] Stat Lab 08/10/25 05:02 Ordered Lipase Stat Lab 08/10/25 05:02 Ordered Magnesium Stat Lab 08/10/25 05:02 Ordered UA, C/S IF [Urinalysis, C/S if Indicated] Stat Lab 08/10/25 05:03 Ordered HYDROmorphone INJ [Dilaudid Inj] Med 08/10/25 05:01 Discontinued 1 mg IVP X1 ONE Ondansetron Inj [Zofran Inj] Med 08/10/25 05:01 Discontinued 4 mg IVP X1 ONE Sodium Chloride 0.9% 1000 ml [Ns] 1,000 ml Med 08/10/25 05:01 Active IV 999 mls/hr Vital Signs Vital signs: Vital Signs Temperature 98.6 F 08/10/25 04:55 Pulse Rate 95 08/10/25 04:55 Respiratory Rate 14 08/10/25 04:55 Blood Pressure 128/69 08/10/25 04:55 Pulse Oximetry (%) 99 08/10/25 04:55 Oxygen Delivery Method Room Air 08/10/25 04:55 Back Pain / Injury MDM Narrative MDM Narrative:: This section includes all my notes and documentations, including HPI, PE, and ED course. Kip Cordova MD HPI: 74 y/o male with Hx of Colorectal CA, GERD, Kidney Stones, Inguinal Hernia, and BPH BIBA from home with vomiting and right flank pain x 6 hours. Feels similar to past kidney stone attacks. No other complaints. ROS: All negative except as documented in HPI. Physical Exam: General: Alert and oriented. Appears uncomfortable. Eyes: Conjunctivae and lids clear. ENT: No nasal congestion. Neck: Supple. Heart: RRR. Lungs: No respiratory distress. Good air movement. No rhonchi, wheezing, rales. Abdomen: Soft and nontender. Normal bowel sounds. No distension. No rebound or guarding. Back: No CVA tenderness. Skin: Warm and dry. Neuro: Alert and oriented X 3. I reviewed EMS notes. I ordered IVF, Zofran 4 mg IV, Dilaudid 1 mg IV, and diagnostic tests. At 0600 on 08/10/2025, the care of the patient was transferred to Dr. Orozco. Kip Cordova MD Patient data External records reviewed:: [facility] previous records (Reviewed prior ED records from 09/26/24. Patient was seen for Altered mental status.) and EMS form Clinical information provided by:: patient and EMS Social determinants that could affect healthcare access:: none Patient has the following chronic illnesses:: Traumatic Brain Injury, Colorectal Cancer, Gastroesophageal Reflux Disease, Kidney Stones, Inguinal Hernia, Benign Prostatic Hyperplasia, Arthritis and Fractures How is presenting disease/condition affected by chronic disease/condition?: exacerbated by Evaluation data The following diagnostics were reviewed and interpreted by me:: lab results and radiology exam(s) Lab and/or radiology exams considered but not ordered:: None Interpretation Summary: Complete diagnostic tests are pending. Medications / Prescriptions Medications or Prescriptions considered but not ordered:: None Medication administrations:: Medication Administration History Sodium Chloride (Ns) 1,000 mls @ 999 mls/hr IV .Q1H1M ONE Stop: 08/10/25 06:01 Discontinued Medications Hydromorphone HCl (Hydromorphone Inj 2 Mg/Ml Vial) 1 mg IVP X1 ONE Stop: 08/10/25 05:02 Ondansetron HCl (Ondansetron Inj 2 Mg/Ml Inj 2 Ml) 4 mg IVP X1 ONE; Protocol Stop: 08/10/25 05:02 I ordered IVF, Zofran 4 mg IV, Dilaudid 1 mg IV, and diagnostic tests. Consultations Consultation(s) initiated? (list below): No Diagnosis Differential diagnosis back pain/injury: lumbar radiculopathy, strain of lumbar region, renal colic and pyelonephritis Most likely diagnosis given after review of the tests above:: Complete diagnostic tests are pending. Admission Indicated Admission indicated?: not indicated Explain why admission is indicated or not indicated:: Complete diagnostic tests are pending Admission Request Was there a request for admission?: No Disposition Plan Disposition Plan: other (specify) (Patient signed out to Dr. Orozco at 6 AM) Discharge Plan Prescriptions/Referrals Prescriptions/Med Rec: No Action tamsulosin [Flomax] 0.4 mg capsule 0.4 mg PO HS Rx Instructions: once at night. sodium bicarbonate 650 mg Tablet 650 mg PO QID Problem List Clinical Impression: Right flank pain, Vomiting Patient/Caregiver Discharge Instructions Print Language: Faroese
--- NOTE | 2025-08-10 05:02 | XR_ITS ---
Examination: CT abdomen and pelvis without contrast. Coronal 3-D reconstructions. Sagittal 2-D reconstructions. Date and time of exam: August 10, 2025, 0550 hours, comparison September 26, 2024 INDICATIONS: Right flank pain and vomiting today, history left ureteral stent: CTDI: vol (mGy): 6.95 DLP: (mGycm): 414 Technique: Axial images of the abdomen have been obtained, 3 mm slice thickness Intravenous contrast material has not been administered. Low dose protocols were performed. One or more of the following dose reduction techniques were used; automated exposure control, adjustment of the mA and/or KV according to patient size, use of iterative reconstruction technique. Findings: Atelectasis in the lower lung zones Liver is mildly irregular in contour, no focal liver or splenic lesions No gallstones Left ureteral stent satisfactory position with moderate left hydronephrosis Moderate to prominent right hydronephrosis which is secondary to 3 mm calculus in the mid to distal right ureter image 147 Right ileostomy No bowel obstruction No bladder mass Moderate prostatomegaly Diffuse advanced lumbar degenerative disc disease with prominent osteopenia Spondylolysis L5-S1 IMPRESSION: Left ureteral stent in satisfactory position, moderate left hydronephrosis Moderate to prominent right hydronephrosis secondary to 3 mm mid to distal right ureteral calculus
--- NOTE | 2025-08-10 05:02 | XR_ITS ---
Examination: Abdomen sonogram, Limited Date and time of exam: August 10, 2025, 0520 hours INDICATIONS: Right upper abdominal pain with nausea vomiting and diarrhea this evening Technique: Real-time mckeon scale transabdominal sonographic images of the upper abdomen obtained. Findings: Gallstones Normal gallbladder wall 0.25 cm Common bile duct 0.47 cm Pancreatic head and body are obscured by bowel gas Liver 15.35 cm no liver lesions Normal hepatopetal portal venous flow Patent IVC IMPRESSION: Cholelithiasis, negative for cholecystitis
[2025-08-10] MEDS: ONDANSETRON INJ 2 MG/ML INJ 2 ML 4 MG IVP ×2 (05:10→08:21)
[2025-08-10] MEDS: SODIUM CHLORIDE 0.9% 1000 ML 1,000 ML 999 ML IV (05:10)
[2025-08-10] MEDS: HYDROmorphone INJ 2 MG/ML VIAL 1 MG IVP (05:11)
[2025-08-10 05:39] LABS: Basophils # (Auto) 0.0 Thou/mm3 (0.0-0.2); Basophils % (Auto) 0 % (0-2.5); Eosinophils # (Auto) 0.1 Thou/mm3 (0.0-0.5); Eosinophils % (Auto) 1 % (0-10); Hematocrit 31.0 % (41.0-53.0); Hemoglobin 10.0 g/dL (13.5-16.0); Immature Granulocytes Auto 0.04 Thou/mm3 (0.00-0.00); Lymphocytes # (Auto) 0.6 Thou/mm3 (1.0-4.8); Lymphocytes % (Auto) 8 % (10-50); Mean Corpuscular HGB Conc 32.3 g/dl (31.0-37.0); Mean Corpuscular Hemoglobin 31.6 pg (25.0-35.0); Mean Corpuscular Volume 98 fL (80-100); Monocytes # (Auto) 0.8 Thou/mm3 (0.0-0.8); Monocytes % (Auto) 12 % (0-12); Neutrophils # (Auto) 5.5 Thou/mm3 (1.8-7.7); Neutrophils % (Auto) 78 % (37-80); Nucleated Red Blood Cell # 0.00 Thou/mm3 (0.00-0.00); Nucleated Red Blood Cell % 0 /100 WBC (0); Platelet Count 251 Thou/mm3 (140-440); RDW Standard Deviation 49.1 fL (35.1-43.9); Red Blood Count 3.16 Miln/mm3 (4.50-5.90); White Blood Count 7.1 Thou/mm3 (3.8-10.6)
[2025-08-10 06:23] LABS: Alanine Aminotransferase 12 U/L (10-49); Albumin, Serum 3.5 gm/dL (3.4-4.8); Albumin/Globulin Ratio 1.3 (1.2-2.2); Alkaline Phosphatase 92 U/L (46-116); Amylase 90 U/L (30-118); Anion Gap 12 (7-16); Aspartate Amino Transferase 16 U/L (0-34); BUN/Creatinine Ratio 9 Ratio (12-20); Bilirubin,Direct < 0.1 mg/dL (0.0-0.3); Bilirubin,Total 0.2 mg/dL (0.3-1.2); Blood Urea Nitrogen 23 mg/dL (9-23); Calcium 8.4 mg/dL (8.3-10.6); Calcium (Corrected) 8.8 mg/dL (8.5-10.1); Carbon Dioxide 21.8 mMol/L (20.0-31.0); Chloride 107 mMol/L (98-107); Creatinine (Component) 2.7 mg/dL (0.6-1.3); Estimated Creatinine Clearance 27.1 mL/min (>60); Globulin 2.7 gm/dL (2.3-3.5); Glucose 151 mg/dL (74-106); Lipase 52 U/L (12-53); Magnesium 1.9 mg/dL (1.6-2.6); Osmolality,Calculated 287 (275-295); Potassium 3.2 mMol/L (3.4-5.1); Sodium 141 mMol/L (136-145); Total Protein 6.2 gm/dL (5.7-8.2); eGFR 24 See Note
--- NOTE | 2025-08-10 06:29 | PRELIM_ITS ---
Right upper quadrant abdominal ultrasound. August 10, 2025 0520 hours Clinical history: RUQ tenderness Technique: Grayscale and color flow images of the right upper quadrant are provided. Hepatic and portal veins were also imaged with color flow images. Findings: The liver is normal in echogenicity. No intrahepatic biliary ductal dilatation. Calculi are noted within the gallbladder, without evidence of gallbladder wall thickening or pericholecystic fluid. The main portal vein is patent and demonstrates hepatopetal flow. The common bile duct is normal in caliber at 4mm. The pancreas is not well visualized. Impression: Cholelithiasis without acute cholecystitis. Report Electronically Signed By: Suraj Cai 08/10/2025 6:28:29 AM [EST]
--- NOTE | 2025-08-10 06:29 | PRELIM_ITS ---
CT scan of the abdomen and pelvis without intravenous contrast (axial sections with sagittal and coronal reformats) August 10, 2025 0550 hours Clinical History: Right flank pain Findings: The lung bases demonstrate basilar dependent atelectasis. A moderate hiatal hernia is noted. 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 There is left moderate hydroureteronephrosis without obstructing calculus, and a left ureteric stent is seen in place. A 3 mm obstructing calculus is seen in the right mid ureter, causing moderate to severe hydroureteronephrosis. The urinary bladder is unremarkable. There is presacral fluid and soft tissuethickening. No evidence of bowel obstruction. Colectomy changes. 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 Mesenteric fat stranding and multiple small retroperitoneal lymph nodes are noted. The abdominal aorta demonstrates mild atheromatous calcification without aneurysm. There is no evidence of free air or free fluid in the abdomen. Moderate degenerative changes are seen in the lumbar spine, with lower lumbar fixation at the L4-L5 level and bilateral L5 spondylolysis. Impression: A 3 mm obstructing calculus in the right mid ureter, causing moderate to severe hydroureteronephrosis. Moderate left hydronephrosis despite the presence of a left ureteric stent, raises concern for stent malfunction. Recommend clinical correlation and follow-up. Other findings as described above. Report Electronically Signed By: Suraj Cai 08/10/2025 6:28:37 AM [EST]
[2025-08-10 06:53] LABS: Collection Type, Urine Clean Catch; Squamous Epithelial Cell,Urine 0 /hpf (0-5)
[2025-08-10 07:36] LABS: Bilirubin,Urine Negative (Negative); Blood,Urine 3+ (Negative); Clarity,Urine Turbid (Clear/Hazy); Color,Urine Yellow (Lt Yel-Yel); Glucose, Urine 2+ (Negative); Ketones,Urine Negative (Negative); Leukocyte Esterase,Urine Positive (Negative); Nitrite,Urine Positive (Negative); PH,Urine 6.5 (5.0-7.0); Protein,Urine 1+ (Neg - Trace); RBC,Urine 583 /hpf (0-3); Specific Gravity,Urine 1.012 (1.001-1.035); Urobilinogen,Urine Negative mg/dL (0.0-1.0); WBC,Urine 607 /hpf (0-5)
[2025-08-10 07:39] LABS: Culture Indicated,Urine Yes
[2025-08-10 08:20] VITALS: BP 125/63; PULSE 83; RESP 16; TEMP 36.6; O2SAT 99
[2025-08-10] MEDS: cefTRIAXone 2 GM in SODIUM CHLORIDE 0.9% (Popper) 50 ML IV (08:20)
[2025-08-10 09:27] VITALS: BP 120/61; PULSE 80; RESP 16; TEMP 36.6; O2SAT 99
--- NOTE | 2025-08-10 10:31 | PD.EDADDENDU ---
Emergency Room Addendum Addendum Narrative: 0600: Care assumed from Dr. Cordova, the previous shift emergency physician. Past medical, surgical, social and family history reviewed. Vitals and home medications reviewed. I will assume the care of the patient at this time, pending labs, CT, and US. Please refer to the emergency department record for history and examination from initial visit.?The following addendum documentation note is intended to reflect any pending information, findings, or radiology results not included in the patient?s initial chart. The gallbladder ultrasound showed cholelithiasis, negative for cholecystitis. The common bile duct measured 0.47cm. The abdomen/pelvis ST showed left ureteral stent in satisfactory position, moderate left hydronephrosis, moderate to prominent right hydronephrosis secondary to 3 mm mid to distal right ureteral calculus. I reviewed the labs which was significant for potassium of 3.2, creatinine and eGFR are chronically elevated, and total bilirubin 0.2. The urinalysis was significant for 583 RBC and 607 WBC. Patient has remained vitally stable through my watch. We reviewed all the results, analysis, and treatment plans. Patient is amenable to discharge. Strict return precautions were outlined.
== END 2025-08-10 09:28 | disposition home or self-care (01) ==
PROVIDERS: Emergency Medicine; Emergency Provider Family Medicine; PCP Family Medicine
DX: K80.20 Calculus of gallbladder without cholecystitis without obstruction (principal); N13.2 Hydronephrosis with renal and ureteral calculous obstruction; R11.10 Vomiting, unspecified
CPT/HCPCS: 36415; 74176; 76705; 80053; 81001; 82150; 82248; 83690; 83735; 85025; 87040; 87077; 87086; 87186; 96361; 96365; 96375; 96376; 99284; J0696; J1171; J2405; J7030; J7050; A9270

== ENCOUNTER → 2025-08-25 | Outpatient (CLI) | payer MEDICARE, SELFPAY ==
--- NOTE | 2025-08-25 | XR_ITS ---
Examination: Duplex scan of the lower extremity, unilateral right Date and time of exam: August 25, 2025, 1121 hours INDICATIONS: Right leg pain beginning 2 days ago Technique: Duplex scan of the extremity veins using B-mode/grayscale imaging and Doppler spectral analysis and color flow Attention is directed to internal echogenicity, compression and augmentation involving these veins, color flow assessment, spectral analysis Findings: Major deep venous structures in the extremity demonstrate normal course and caliber. There is no evidence of deep vein thrombosis. Normal color flow and spectral analysis Impression: Negative for DVT.. At the area of concern right perineal region 2.5 x 0.7 x 1.3 cm mass, consider hematoma, clinical correlation advised
== END | disposition home or self-care (01) ==
PROVIDERS: PCP Family Medicine; Referring Provider Family Medicine; Visit Provider Family Medicine
DX: R22.41 Localized swelling, mass and lump, right lower limb (principal)
CPT/HCPCS: 93971